=== PATIENT | male | born 1975 | race Two or more races ===

== ENCOUNTER 2018-12-17 07:27 | Emergency (ER) | payer MEDICAID, OTHER ==
[~2018-12-17] VITALS: Ht 165.1 cm; Wt 81.6 kg
[2018-12-17] MEDS ORDERED: SODIUM CHLORIDE 0.9% 1,000 ML IV ONE (07:57)
[2018-12-17] MEDS ORDERED: METOCLOPRAMIDE HCL 5MG/ml INJ 2ml VIAL IV ONE (08:00)
[2018-12-17] MEDS ORDERED: HYDROmorphone HCL 2 MG/ML VL IV ONE (08:00)
[2018-12-17 08:08] LABS: Basophils # (auto) 0.1 uL; Basophils % (auto) 0.8 % (0.0-2.0); Eosinophils # (auto) 0.2 uL; Eosinophils % (auto) 2.2 % (0.0-7.0); Hematocrit 44.6 % (41.0-53.0); Hemoglobin 14.9 g/dL (13.5-17.5); Lymphocytes # (auto) 2.4 uL; Lymphocytes % (auto) 32.8 % (10.0-50.0); Mean Corpuscular Hemoglobin 31.6 pg (28.0-32.0); Mean Corpuscular Hgb Conc. 33.4 g/dL (32.0-36.0); Mean Corpuscular Volume 94.4 fL (80.0-100.0); Monocytes # (auto) 0.5 uL; Monocytes % (auto) 7.1 % (0.0-12.0); Neutrophils # (auto) 4.2 uL; Neutrophils % (auto) 57.1 % (37.0-80.0); Platelet Count (auto) 261 10^3/uL (140-450); Red Blood Cells 4.73 10^6/uL (4.5-5.90); Red Cell Distribution Width 13.5 % (11.8-14.3); White Blood Cell 7.4 10^3/uL (4.4-10.8)
[2018-12-17 08:26] LABS: Albumin 3.7 g/dL (3.4-5.0); Calcium 8.2 mg/dL (8.5-10.1); Potassium 3.2 mmol/L (3.5-5.1)
[2018-12-17 08:31] LABS: BUN/Creatinine Ratio 16.9; Bilirubin, Total 0.4 mg/dL (0.2-1.0); Total Protein 6.9 g/dL (6.4-8.2)
[2018-12-17 09:00] LABS: Urine Bacteria NONE SEEN /hpf (None Seen); Urine Blood TRACE /uL (Negative); Urine Hyaline Cast FEW /lpf (0 - 2); Urine Mucus FEW (None Seen); Urine Specific Gravity 1.011 (1.001-1.035); Urine WBC <1 /hpf (0 - 3)
[2018-12-17 09:04] LABS: Amphetamine Screen, Urine NEGATIVE (NEGATIVE); Barbiturate Scree,Urine NEGATIVE (NEGATIVE); Benzodiazephine Screen, Urine NEGATIVE (NEGATIVE); Cannabinoid Screen, Urine NEGATIVE (NEGATIVE); Cocaine Screen, Urine NEGATIVE (NEGATIVE); Opiate Scree,Urine NEGATIVE (NEGATIVE); Phencyclidine Screen, Urine NEGATIVE (NEGATIVE)
[2018-12-17] MEDS ORDERED: IOHEXOL 300 MG/ML 100ML BOTTLE IJ ONE (09:22)
[2018-12-17 09:55] VITALS: BP 156/76
[2018-12-17] MEDS ORDERED: POTASSIUM EFFERVESENT TAB 25 MEQ PO ONE (10:15)
== END 2018-12-17 10:36 | disposition home or self-care (01) ==
LOC: EDBD 07:27 → ER 07:27
DX: S22.42XA Multiple fractures of ribs, left side, initial encounter for closed fracture (principal); E87.6 Hypokalemia; F10.10 Alcohol abuse, uncomplicated; Z87.442 Personal history of urinary calculi; V43.52XA Car driver injured in collision with other type car in traffic accident, initial encounter; Y93.89 Activity, other specified; Y92.488 Other paved roadways as the place of occurrence of the external cause; Y99.8 Other external cause status
CPT/HCPCS: 36415; 71260; 80053; 80307; 80320; 81001; 83735; 85025; 93005; 96374; 96375; 99284; J1170; J2765; J7030; Q9967

== ENCOUNTER 2018-12-19 18:22 | Emergency (ER) | payer MEDICAID ==
[~2018-12-19] VITALS: Ht 177.8 cm; Wt 72.6 kg
[2018-12-19 18:46] VITALS: BP 97/64
== END 2018-12-19 23:31 | disposition left against medical advice (07) ==
LOC: ER 18:23
DX: R07.89 Other chest pain (principal); Z53.21 Procedure and treatment not carried out due to patient leaving prior to being seen by health care provider

== ENCOUNTER 2019-01-17 09:42 | Emergency (ER) | payer MEDICAID ==
[~2019-01-17] VITALS: Ht 177.8 cm; Wt 90.7 kg
[2019-01-17 10:49] VITALS: BP 127/94
[2019-01-17] MEDS ORDERED: KETOROLAC TROMETH 60MG/2ML VIAL IM ONE (11:15)
== END 2019-01-17 12:01 | disposition home or self-care (01) ==
LOC: ER 09:42
DX: S22.42XA Multiple fractures of ribs, left side, initial encounter for closed fracture (principal); F17.210 Nicotine dependence, cigarettes, uncomplicated; Z87.442 Personal history of urinary calculi; X50.0XXA Overexertion from strenuous movement or load, initial encounter; Y93.89 Activity, other specified; Y99.8 Other external cause status; Y92.89 Other specified places as the place of occurrence of the external cause
CPT/HCPCS: 71101; 93005; 96372; 99283; J1885